=== PATIENT | female | born 1995 | race Hispanic/Latino ===

== ENCOUNTER 2021-08-26 17:51 | Inpatient (IN) | payer OTHER ==
[2021-08-26] MEDS ORDERED: Ringers Lactate 1,000 ML IV PRN (17:52)
[2021-08-26] MEDS ORDERED: PROMETHAZINE INJ 25 MG/ML AMP IM PRN (17:52)
[2021-08-26] MEDS ORDERED: CARBOPROST TROME 250 MCG/ML IM PRN (17:52)
[2021-08-26] MEDS ORDERED: BUTORPHANOL 1 MG/ML INJ IV PRN (17:52)
[2021-08-26] MEDS ORDERED: METHYLERGONOVINE 0.2MG/ML AMP IM PRN (17:52)
[2021-08-26] MEDS ORDERED: Ringers Lactate 1,000 ML IV SCH (18:00)
[2021-08-26] MEDS ORDERED: OXYTOCIN/LR 20 UNIT/1,000 ML BAG IV SCH ×2 (18:00→19:00)
[2021-08-26] MEDS ORDERED: OXYTOCIN/LR 20 UNIT/1,000 ML BAG IV ONE (18:00)
[2021-08-26] MEDS ORDERED: METHYLERGONOVINE 0.2MG/ML AMP IM ONE (18:01)
[2021-08-26] MEDS ORDERED: LIDOCAINE 1% MPF 30 ML VIAL ONE (18:01)
[2021-08-26] MEDS ORDERED: CARBOPROST TROME 250 MCG/ML IM ONE (18:01)
[2021-08-26 18:32] VITALS: BMI 33.1
[2021-08-26 18:33] LABS: Urine Appearance CLOUDY (Clear); Urine Bilirubin NEGATIVE (Negative); Urine Blood 1+ (Negative); Urine Color DK YELLOW (Yellow); Urine Glucose NEGATIVE (Negative); Urine Protein 1+ (Negative); Urine Specific Gravity >=1.030 (1.005-1.030)
[2021-08-26 18:38] LABS: Absolute Lymphocytes (CBC) 2.3 K/uL (0.7-4.9); Hematocrit 36.6 % (36.0-45.0); Lymphocytes % 13.1 % (15.3-44.8); MPV 8.4 fL (7.6-11.3); RBC Red Blood Cell Count 4.52 M/uL (3.86-4.86)
[2021-08-26 18:39] LABS: Urine Microscopic Reflex ORDER UMIC
[2021-08-26] MEDS ORDERED: DIPHENHYDRAMINE 25 MG TAB/CAP PO PRN (18:42)
[2021-08-26] MEDS ORDERED: IBUPROFEN 200 MG TAB PO PRN (18:42)
[2021-08-26] MEDS ORDERED: ACETAMINOPHEN 500 MG TAB PO PRN (18:42)
[2021-08-26] MEDS ORDERED: BISACODYL 10 MG RECTAL SUPP PR PRN (18:42)
[2021-08-26] MEDS ORDERED: Oxycodone HCl/Acetaminophen 1 TAB TAB PO PRN (18:42)
[2021-08-26] MEDS ORDERED: DOCUSATE NA/SENNA CONC 1 TAB PO PRN (18:42)
[2021-08-26 18:45] LABS: Urine Amorphous Sediment 3+ /HPF (NONE SEEN); Urine Bacteria >50 /HPF (<20); Urine Mucus 2+ /HPF (NONE SEEN)
--- NOTE | 2021-08-26 19:45 | OP ---
Surgeon: Jose Villalobos MD A 26-year-old 4, para 3, 38 weeks 3 days scheduled for induction on Thursday, comes in, in acti ve rapidly advancing labor, 6-7 cm on admission, 90 to 100% effaced, bulging membranes. IV was start ed. Within the next 15 minutes, she was complete and then within another 5 minutes she was on the pe rineum. Spontaneous vaginal delivery of an estimated 6 pound plus female, Apgars 9, 9 or 9, 10. Sma ll second-degree laceration, simulating episiotomy from previous laceration site, sutured with 2-0 ch romic after local infiltration. Schultze delivery of the placenta which was inspected, noted to be i ntact and normal. Less than 200 cc blood loss. The patient is Rh positive, immune to rubella, negat drake strep, negative HIV, negative hepatitis B, COVID status pending. Tolerated all procedures well. Final Diagnoses: Term intrauterine at 38 weeks 3 days, spontaneous labor, vaginal delivery . ANGEL/MARE Voice ID: [id number] Report ID: [id number]
[2021-08-27 00:22] LABS: RPR (Rapid Plasma Reagin) NON-REACT (NON-REACT)
[2021-08-27] MEDS: Oxycodone HCl/Acetaminophen 1 TAB TAB PO PRN ×3 (05:51→20:28)
--- NOTE | 2021-08-27 07:42 | DS ---
Hospital Course: This is a 26-year-old, 4, para 3, scheduled for induction this Thursday. Cam e in spontaneous rapidly advancing labor at 38 weeks and 3 days. Delivered a 6-pound 8-ounce female, Apgars 9 and 9 or even 9 and 10. Local infiltration for repair of a small second-degree laceration, repaired with 2-0 chromic. Schultze delivery of the placenta. Less than 200 cc blood loss. Rh pos itive, immune to rubella, negative strep, negative COVID, and negative hepatitis. ; afebri le, ambulating, voiding. Lochia is normal. She will be dismissed later today to report back to my o ffice in 6 weeks for followup to report any temperature elevation of 100 degrees or greater, severe p ain, heavy bleeding, or any other type of abnormalities. Dismissed with tramadol and required no nayan lgesics on dismissal. Final Diagnoses: Intrauterine gestation, 38 weeks 3 days, spontaneous labor, vaginal delivery. Immu nizations offered. ANGEL/MARE Voice ID: [id number] Report ID: [id number]
--- NOTE | 2021-08-27 10:09 | PREOPHP ---
Date of Admission: 08/26/2021 History Of Present Illness: A 26-year-old 4, para 3, scheduled for induction this Thursday, ca me in and active rapidly advancing labor 20 minutes ago. She was about 6-1/2 now. She is about 9-1/ 2 bulging membranes, rupture of membranes, clear fluid. FHTs normal, reactive. All vital signs norm al. Strep negative. HIV and hepatitis negative. O positive, immune to Rubella. She had 3 girls an d this is another girl. Family History: Not really contributory. Past Medical History: No previous surgeries. Medications: vitamins. No sexually transmitted diseases. Allergies: NO ALLERGIES. Social History: No smoking. Physical Examination: HEENT: Clear. Pupils equal, round, reactive to light and accommodation. Conjunctivae well perfused. No oral, lingual, or buccal lesions. Chest: Lungs clear. Heart: Without murmurs, thrills, heaves, or rubs. Breasts: Without masses on previous visits. Abdomen: Term size. Baby is vertex and cervical exam as stated, approximately 8 to 9-1/2, rupture of membranes now. Extremities: Clear with no edema, cyanosis, or clubbing. Anticipate rather rapid delivery. DORENEC/MODL Voice ID: [id number]
[2021-08-27 21:11] VITALS: BP 114/65; TEMP 98.1
[2021-08-28 17:16] LABS: HBsAG Nonreactive (Nonreactive)
== END 2021-08-27 20:50 | disposition home or self-care (01) | DRG 807 ==
LOC: 2ND-WC 17:51
PROVIDERS: ADMIT Specialist; ATTEND Specialist
PROC: 10E0XZZ Delivery of Products of Conception, External Approach (ICD-10-PCS; principal; 2021-08-26)
PROC: 0KQM0ZZ Repair Perineum Muscle, Open Approach (ICD-10-PCS; 2021-08-26)
PROC: 10907ZC Drainage of Amniotic Fluid, Therapeutic from Products of Conception, Via Natural or Artificial Opening (ICD-10-PCS; 2021-08-26)
DX: O70.1 Second degree perineal laceration during delivery (principal); Z37.0 Single live birth; Z3A.38 38 weeks gestation of pregnancy; Z20.822 Contact with and (suspected) exposure to COVID-19
CPT/HCPCS: 36415; 81003; 81015; 85025; 86592; 86901; 87086; 87088; 87340; J2210; J2590; U0003

== ENCOUNTER 2021-10-14 06:27 | Emergency (ER) | payer OTHER ==
[2021-10-14] MEDS ORDERED: KETOROLAC 30 MG/ML INJ ONE (06:58)
[2021-10-14 07:14] LABS: Hematocrit 39.8 % (36.0-45.0); Lymphocytes % 24.1 % (15.3-44.8); MPV 7.6 fL (7.6-11.3); RBC Red Blood Cell Count 4.93 M/uL (3.86-4.86)
--- NOTE | 2021-10-14 07:14 | RAD REPORT ---
EXAM DESCRIPTION: US - Abdomen Exam Limited - 10/14/2021 7:06 am CLINICAL HISTORY: ABD PAIN COMPARISON: No comparisons FINDINGS: Several small sub centimeter sized mobile gallstones are identifiable. No measurable quant ity of sludge. There is no wall thickening or pericholecystic fluid. No common duct stone or biliary tree dilatation identified. IMPRESSION: Multi stone cholelithiasis without sonographic findings of acute cholecystitis. No biliary tree abnormality.
[2021-10-14 07:32] LABS: ALT/SGPT 44 U/L (12-78); AST/SGOT 22 U/L (15-37); Albumin 3.9 g/dL (3.4-5.0); Alkaline Phosphatase 84 U/L (45-117); BUN Blood Urea Nitrogen 11 mg/dL (7-18); Bicarbonate 25 mmol/L (21-32); Bilirubin Total 0.2 mg/dL (0.2-1.0); Glucose Level 99 mg/dL (74-106); Lipase 129 U/L (73-393); Potassium 3.9 mmol/L (3.5-5.1); Protein, Total 7.6 g/dL (6.4-8.2); Sodium Level 137 mmol/L (136-145)
[2021-10-14 07:33] LABS: Bilirubin Direct < 0.1 mg/dL (0-0.2)
--- NOTE | 2021-10-14 07:41 | ER ---
Nurse's Notes [facility] Name: Nancy Guzman Age: 26 yrs Sex: Female : 1995 Arrival Date: 10/14/2021 Time: 06:31 Bed 2 Private MD: Jose Villalobos B Diagnosis: Other cholelithiasis without obstruction Presentation: 10/14 06:44 Acuity: MAGALI 3 lp1 06:45 Chief complaint: Patient states: Epigastric pain radiating to back since 0000; Denies lp1 N/V/D, fever. 06:45 Coronavirus screen: At this time, the client does not indicate any symptoms associated lp1 with coronavirus-19. Ebola Screen: No symptoms or risks identified at this time. Initial Sepsis Screen: Does the patient meet any 2 criteria? No. Patient's initial sepsis screen is negative. Does the patient have a suspected source of infection? No. Patient's initial sepsis screen is negative. Risk Assessment: Do you want to hurt yourself or someone else? Patient reports no desire to harm self or others. Onset of symptoms was October 14, 2021 at 00:00. 06:45 Method Of Arrival: Ambulatory lp1 07:11 Note Patient reports 7 weeks post . lp1 Historical: - Allergies: 06:45 No Known Allergies; lp1 - Home Meds: 06:45 None [Active]; lp1 - PMHx: 06:45 None; lp1 - PSHx: 06:45 None; lp1 - Immunization history:: Adult Immunizations up to date. - Social history:: Smoking status: Patient denies any tobacco usage or history of. Screenin:10 Abuse screen: Denies threats or abuse. Denies injuries from another. Nutritional as6 screening: No deficits noted. Tuberculosis screening: No symptoms or risk factors identified. Fall Risk None identified. Assessment: 06:55 General: Appears in no apparent distress. Behavior is calm, cooperative. Pain: as6 Complains of pain in right upper quadrant Pain radiates to back Pain currently is 5 out of 10 on a pain scale. Neuro: Level of Consciousness is awake, alert, obeys commands, Oriented to person, place, time, situation. GI: Reports upper abdominal pain, nausea, Patient currently denies vomiting. Vital Signs: 06:45 BP 139 / 87; Pulse 66; Resp 16; Temp 98.4(O); Pulse Ox 100% on R/A; Weight 68.04 kg lp1 (R); Height 4 ft. 11 in. (149.86 cm); Pain 5/10; 07:30 Pain 2/10; ke1 08:12 BP 107 / 60; Pulse 64; Resp 18; Pulse Ox 100% on R/A; ke1 06:45 Body Mass Index 30.30 (68.04 kg, 149.86 cm) lp1 ED Course: 06:31 Patient arrived in ED. es 06:31 Jose Villalobos MD is Private Physician. es 06:32 [facility] Swain [facility]C [facility] kb 06:32 Nigel Araujo MD is Attending Physician. kb 06:44 Triage completed. lp1 06:53 Doni Gil, RN is Primary Nurse. as6 06:55 Inserted saline lock: 20 gauge in right antecubital area, using aseptic technique. as6 Blood collected. 07:01 Primary Nurse role handed off by Doni Gil, RN ke1 07:01 Lazara Parisi, BRIGETTE is Primary Nurse. ke1 07:01 CBC with Diff Sent. as6 07:01 Hepatic Function Sent. as6 07:01 Lipase Sent. as6 07:01 Basic Metabolic Panel Sent. as6 07:02 Basic Metabolic Panel Sent. as6 07:06 US Abdomen Limited In Process Unspecified. EDMS 07:10 Arm band placed on. lp1 07:11 Placed in gown. Bed in low position. Call light in reach. Side rails up X 1. Adult w/ as6 patient. Pulse ox on. NIBP on. 08:13 No provider procedures requiring assistance completed. IV discontinued. ke1 Administered Medications: 07:11 Drug: Ketorolac 15 mg Route: IVP; Site: right antecubital; ke1 07:30 Follow up: Pain 2/10 Adult ke1 08:14 Follow up: Response: Pain is decreased ke1 Outcome: 07:40 Discharge ordered by . kb 08:13 Discharged to home ke1 08:13 Condition: stable 08:13 Discharge instructions given to patient. 08:15 Patient left the ED. ke1 Signatures: Dispatcher [employer] EDMS Felicia Swain FNP-C SAFETY AND SECURITY MANAGER-Ckb Ximena Kunz Laura, RN RN lp1 Doni Gil, RN RN as6 Lazara Parisi, RN RN ke1
--- NOTE | 2021-10-14 07:41 | EDPHYS ---
Physician Documentation [facility] Name: Nancy Guzman Age: 26 yrs Sex: Female : 1995 Arrival Date: 10/14/2021 Time: 06:31 Bed 2 Private MD: Jose Villalobos B ED Physician Nigel Araujo HPI: 10/14 07:00 This 26 yrs old Female presents to ER via Unassigned with complaints of pain kb from abd to back. 07:00 The patient presents with abdominal pain in the upper abdomen. Onset: The kb symptoms/episode began/occurred last night. The symptoms radiate to Associated signs and symptoms: none. The symptoms are described as constant. Modifying factors: The symptoms are alleviated by nothing, the symptoms are aggravated by nothing. Severity of pain: At its worst the pain was moderate in the emergency department the pain is unchanged. The patient has not experienced similar symptoms in the past. The patient has not recently seen a physician. Pt reports epigastric pain that radiates to back that began around midnight. Denies any other symptoms at this time. Pt is 7 weeks . Has never had this pain before. Historical: - Allergies: 06:45 No Known Allergies; lp1 - Home Meds: 06:45 None [Active]; lp1 - PMHx: 06:45 None; lp1 - PSHx: 06:45 None; lp1 - Immunization history:: Adult Immunizations up to date. - Social history:: Smoking status: Patient denies any tobacco usage or history of. ROS: 06:59 Constitutional: Negative for fever, chills, and weight loss. kb 06:59 Abdomen/GI: Positive for abdominal pain, Negative for nausea, vomiting, and diarrhea. 06:59 All other systems are negative. Exam: 06:59 Constitutional: This is a well developed, well nourished patient who is awake, alert, kb and in no acute distress. Head/Face: Normocephalic, atraumatic. ENT: Moist Mucous membranes Cardiovascular: Regular rate and rhythm with a normal S1 and S2. No gallops, murmurs, or rubs. No pulse deficits. Respiratory: Respirations even and unlabored. No increased work of breathing. Talking in full sentences Skin: Warm, dry with normal turgor. Normal color. MS/ Extremity: Pulses equal, no cyanosis. Neurovascular intact. Full, normal range of motion. Neuro: Awake and alert, GCS 15, oriented to person, place, time, and situation. Moves all extremities. Normal gait. Psych: Awake, alert, with orientation to person, place and time. Behavior, mood, and affect are within normal limits. 06:59 Abdomen/GI: Inspection: abdomen appears normal, Bowel sounds: normal, in all quadrants, Palpation: soft, in all quadrants, moderate abdominal tenderness, in the right upper quadrant. Vital Signs: 06:45 BP 139 / 87; Pulse 66; Resp 16; Temp 98.4(O); Pulse Ox 100% on R/A; Weight 68.04 kg lp1 (R); Height 4 ft. 11 in. (149.86 cm); Pain 5/10; 07:30 Pain 2/10; ke1 08:12 BP 107 / 60; Pulse 64; Resp 18; Pulse Ox 100% on R/A; ke1 06:45 Body Mass Index 30.30 (68.04 kg, 149.86 cm) lp1 MDM: 06:43 Patient medically screened. kb 06:59 Data reviewed: vital signs, nurses notes. Data interpreted: Pulse oximetry: on room air kb is 100 %. Interpretation: normal. 07:39 Counseling: I had a detailed discussion with the patient and/or guardian regarding: the kb historical points, exam findings, and any diagnostic results supporting the discharge/admit diagnosis, lab results, radiology results, the need for outpatient follow up, a general surgeon, to return to the emergency department if symptoms worsen or persist or if there are any questions or concerns that arise at home. 10/14 06:43 Order name: Basic Metabolic Panel kb 10/14 06:43 Order name: CBC with Diff; Complete Time: 07:18 kb 10/14 06:43 Order name: Hepatic Function; Complete Time: 07:39 kb 10/14 06:43 Order name: Lipase; Complete Time: 07:39 kb 10/14 06:43 Order name: US Abdomen Limited; Complete Time: 07:18 kb 10/14 06:44 Order name: Basic Metabolic Panel; Complete Time: 07:39 EDMS 10/14 06:43 Order name: IV Saline Lock; Complete Time: 07:01 kb 10/14 06:43 Order name: Labs collected and sent; Complete Time: 07:01 kb Administered Medications: 07:11 Drug: Ketorolac 15 mg Route: IVP; Site: right antecubital; ke1 07:30 Follow up: Pain 2/10 Adult ke1 08:14 Follow up: Response: Pain is decreased ke1 Disposition Summary: 10/14/21 07:40 Discharge Ordered Location: Home kb Condition: Stable kb Diagnosis - Other cholelithiasis without obstruction kb Followup: kb - With: Emergency Department - When: As needed - Reason: Worsening of condition Followup: kb - With: Private Physician - When: 2 - 3 days - Reason: Recheck today's complaints, Continuance of care, Re-evaluation by your physician Discharge Instructions: - Discharge Summary Sheet kb - Cholelithiasis, [id number] kb Forms: - Medication Reconciliation Form kb - Thank You Letter kb - Antibiotic Education kb - Prescription Opioid Use kb Prescriptions: - Zofran 4 mg Oral Tablet - take 1 tablet by ORAL route every 6 hours As needed; 20 tablet; Refills: 0, kb Product Selection Permitted - dicyclomine 20 mg Oral Tablet - take 1 tablet by ORAL route 4 times per day As needed; 20 tablet; Refills: 0, kb Product Selection Permitted Addendum: 10/16/2021 22:47 Co-signature as Attending Physician, Nigel Araujo MD. [facility] Signatures: Dispatcher [employer] Felicia Salvador, DIGITAL ANALYST-C DIGITAL ANALYST-Afua Bruce, RN RN lp1 Nigel Araujo MD MD [id number] Lazara Parisi RN RN ke1
[2021-10-14 08:21] VITALS: TEMP 98.4; O2SAT 100
[2021-10-14 08:24] VITALS: BP 107/60
== END 2021-10-14 08:15 | disposition home or self-care (01) ==
LOC: ER 06:27
DX: K80.80 Other cholelithiasis without obstruction (principal)
CPT/HCPCS: 36415; 76705; 80048; 80076; 83690; 85025; 96374; 99284

== ENCOUNTER 2021-10-28 08:51 | Day surgery (SDC) | payer OTHER ==
[2021-10-28] MEDS ORDERED: BUPIVACAINE 0.5% PF 10 ML VIAL ONE (09:14)
[2021-10-28 09:19] LABS: ALT/SGPT 58 U/L (12-78); AST/SGOT 28 U/L (15-37); Albumin 3.6 g/dL (3.4-5.0); Alkaline Phosphatase 94 U/L (45-117); Amylase 46 U/L (25-115); Bilirubin Total 0.1 mg/dL (0.2-1.0); Protein, Total 7.7 g/dL (6.4-8.2)
[2021-10-28] MEDS ORDERED: Ringers Lactate 1,000 ML IV ONE (09:42)
[2021-10-28] MEDS ORDERED: NA CHLORIDE 0.9% 50 ML ONE (09:43)
[2021-10-28] MEDS ORDERED: CEFOXITIN SODIUM 1 GM/VIAL ONE (09:43)
[2021-10-28] MEDS ORDERED: ROCURONIUM 50 MG/5 ML VIAL IV ONE (09:44)
[2021-10-28] MEDS ORDERED: dexAMETHasone 10 MG/ML VIAL ONE (09:46)
[2021-10-28] MEDS ORDERED: FENTANYL CITR 100 MCG/2 ML ONE (09:46)
[2021-10-28] MEDS ORDERED: MIDAZOLAM HCL 2 MG/2 ML INJ ONE (09:46)
[2021-10-28] MEDS ORDERED: KETOROLAC 30 MG/ML INJ ONE (09:46)
[2021-10-28] MEDS ORDERED: ONDANSETRON 4 MG/2 ML VIAL ONE (09:47)
--- NOTE | 2021-10-28 10:47 | P.OP ---
Textile Screen Printer: Josemanuel CABRERA Preoperative diagnosis: Symptomatic cholelithiasis Postoperative diagnosis: Same Primary procedure: Laparoscopic cholecystectomy Anesthesia: General Estimated blood loss: Minimal Specimen: Gallbladder Findings: As above Operative Technique: Patient brought to the OR and placed in the supine position. General anesthesia begun and patient prepped and draped in the usual sterile fashion. Marcaine 0.5% infiltrated locally. 15 blade used to make a 1 cm infraumbilical midline incision. Subcutaneous tissue divided and fascia identified and divided. Peritoneal cavity entered with sharp and blunt dissection. 12 mm trocar placed into the peritoneal cavity under direct vision. Pneumoperitoneum established and three 5 mm trochars placed. One in the epigastric region just to the right of midline and two in the right subcostal region. Laparoscopy revealed chronic inflammation of the gallbladder. Fundus identified and retracted superiorly. Infundibulum identified and retracted inferolaterally. Cystic duct and cystic artery clearly identified with blunt dissection. Clips placed and both structures divided. Cautery used to remove the gallbladder from the liver bed. Bleeding on the liver bed controlled with cautery. Gallbladder retrieved through the umbilicus via Endo Catch bag. Right upper quadrant examined and no evidence of bleeding or bile leakage appreciated. Subsequently all trochars removed under direct vision. Stay sutures tied to each other to reapproximate the fascial defect. Subcutaneous wounds irrigated bleeding controlled with cautery. 3-0 chromic used to reapproximate the subcutaneous tissue and 4-0 Monocryl used to close skin. Patient awakened and taken to recovery in good general condition. CC: Dr. Villalobos's office Complications: None Transferred to: Recovery Room Condition: Good
[2021-10-28] MEDS ORDERED: GLYCOPYRROLATE 0.2 MG/ML SYR ONE (10:48)
[2021-10-28] MEDS ORDERED: NEOSTIGMINE 1 MG/ML -5 ML ONE (10:48)
[2021-10-28] MEDS ORDERED: HYDROCODONE/APAP 7.5/325 MG TAB PO PRN (10:49)
[2021-10-28 11:03] VITALS: O2SAT 100
[2021-10-28] MEDS ORDERED: propofoL 200 MG/20 ML VIAL IV ONE (11:17)
[2021-10-28] MEDS ORDERED: LIDOCAINE 1% MPF 30 ML VIAL ONE (11:18)
[2021-10-28] MEDS ORDERED: HYDROCODONE/APAP 7.5/325 MG TAB ONE (11:55)
[2021-10-28 12:01] VITALS: TEMP 96.7
[2021-10-28 14:05] VITALS: BP 127/79
== END 2021-10-28 12:50 | disposition home or self-care (01) ==
LOC: OR 08:51
PROVIDERS: ATTEND Surgery
PROC: 0FT44ZZ Resection of Gallbladder, Percutaneous Endoscopic Approach (ICD-10-PCS; principal; 2021-10-28 10:00)
DX: K80.10 Calculus of gallbladder with chronic cholecystitis without obstruction (principal); Z20.822 Contact with and (suspected) exposure to COVID-19; R10.9 Unspecified abdominal pain
CPT/HCPCS: 36415; 82150; 81025; 80076; 88304; 47562; U0003; J2704; J2250; J3010; J1100; J2710; J7120; J0694; J2405